=== PATIENT | male | born 1960 | race Caucasian/White ===

== ENCOUNTER → 2016-06-24 | Outpatient (CLI) | payer BC ==
[~2016-06-24] MED LIST: ASPI-435 PO; ASPI325T45 PO; CRS10 PO; DICL1GEL12 TOP; HYDR25TA5 PO; IBUP-1427 PO; LOSA100T65 PO; NAPR1TAB9 PO; TPRSR/50 PO
[2016-06-24 12:33] LABS: BLOOD UREA NITROGEN 13 mg/dl (7-18); BUN/CREATININE RATIO 12.1 (10-20); CALCIUM 9.4 mg/dl (8.5-10.1); CARBON DIOXIDE 25 mmol/L (21-32); CHLORIDE 100 mmol/L (98-107); GLUCOSE 73 mg/dl (70-99); POTASSIUM 4.3 mmol/L (3.5-5.1); SODIUM 135 mmol/L (136-145)
== END | disposition home or self-care (01) ==
LOC: C.LAB1850 11:18
PROVIDERS: ATTEND Family Medicine
DX: I10 Essential (primary) hypertension (principal); E78.00 Pure hypercholesterolemia, unspecified

== ENCOUNTER → 2017-01-11 | Outpatient (CLI) | payer BC ==
[~2017-01-11] MED LIST changes: -ASPI325T45 PO
[2017-01-11 13:41] LABS: ALB/GLOB RATIO 1.1 (0.9-2); ALKALINE PHOSPHATASE 67 U/L (45-117); ALT/SGPT 28 U/L (12-78); AST/SGOT 22 U/L (15-37); BLOOD UREA NITROGEN 17 mg/dl (7-18); CALCIUM 9.2 mg/dl (8.5-10.1); CARBON DIOXIDE 29 mmol/L (21-32); CHLORIDE 101 mmol/L (98-107); CHOLESTEROL 182 mg/dl (0-200); GLUCOSE 85 mg/dl (70-99); POTASSIUM 3.1 mmol/L (3.5-5.1); SODIUM 137 mmol/L (136-145)
[2017-01-11 13:44] LABS: CHOLESTEROL/HDL RATIO 3.5; HDL CHOLESTEROL 52 mg/dl; LDL CHOLESTEROL CALCULATED 104 mg/dl; TRIGLYCERIDES 130 mg/dl (0-150); VERY LOW DENSITY LIPOPROT CALC 26 mg/dl
== END | disposition home or self-care (01) ==
LOC: C.LAB1850 12:10
PROVIDERS: ATTEND Family Medicine
DX: I10 Essential (primary) hypertension (principal); E78.00 Pure hypercholesterolemia, unspecified; G47.33 Obstructive sleep apnea (adult) (pediatric)

== ENCOUNTER → 2017-02-04 | Outpatient (CLI) | payer BC ==
[2017-02-04 12:39] LABS: BLOOD UREA NITROGEN 22 mg/dl (7-18); BUN/CREATININE RATIO 18.4 (10-20); CALCIUM 9.6 mg/dl (8.5-10.1); CARBON DIOXIDE 27 mmol/L (21-32); CHLORIDE 104 mmol/L (98-107); GLUCOSE 93 mg/dl (70-99); POTASSIUM 3.5 mmol/L (3.5-5.1); SODIUM 138 mmol/L (136-145)
== END | disposition home or self-care (01) ==
LOC: C.LAB1850 10:15
PROVIDERS: ATTEND Family Medicine
DX: E87.6 Hypokalemia (principal)

== ENCOUNTER 2019-01-31 08:09 | Inpatient (IN) ==
--- NOTE | 2019-01-17 16:37 | PAT Medication Instructions ---
Medication Instructions Date of Service January 17, 2019 Home Medications Medication Instructions Recorded timolol 0.5 % eye drops 1 drops OP BID #15 ml 12/09/18 rosuvastatin 10 mg tablet 10 mg PO HS #90 tab 01/12/19 losartan 100 mg tablet 100 mg PO QAM metoprolol succinate ER 50 mg tablet,extended release 24 hr 50 mg PO QAM potassium chloride ER 20 mEq tablet,extended release 20 meq PO QAM valacyclovir 500 mg tablet 500 mg PO QAM diclofenac 1 % topical gel 1 % TOPICAL DAILY PRN timolol 0.5 % eye drops 1 drops OP BID aspirin [Aspirin Low Dose] 81 mg PO QAM brinzolamide-brimonidine [Simbrinza] 1 drops OP QPM hydrochlorothiazide 50 mg PO QAM loteprednol etabonate [Lotemax] 1 drp OPHTHALMIC (EYE) QDL rosuvastatin 10 mg tablet 10 mg PO HS ASK your surgeon for instructions diclofenac 1 % topical gel 1 % TOPICAL DAILY PRN DO NOT take the morning of surgery losartan 100 mg tablet 100 mg PO QAM potassium chloride ER 20 mEq tablet,extended release 20 meq PO QAM hydrochlorothiazide 50 mg PO QAM Take morning of surgery With a small sip of water, OTHERWISE NOTHING TO EAT OR DRINK AFTER MIDNIGHT: metoprolol succinate ER 50 mg tablet,extended release 24 hr 50 mg PO QAM valacyclovir 500 mg tablet 500 mg PO QAM timolol 0.5 % eye drops 1 drops OP BID aspirin [Aspirin Low Dose] 81 mg PO QAM loteprednol etabonate [Lotemax] 1 drp OPHTHALMIC (EYE) QDL Take evening before surgery timolol 0.5 % eye drops 1 drops OP BID brinzolamide-brimonidine [Simbrinza] 1 drops OP QPM rosuvastatin 10 mg tablet 10 mg PO HS BRING YOUR EYE DROPS WITH YOU TO THE HOSPITAL Other Notes If you have any questions please call us at [phone] or [phone] or [phone] or [phone]
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
--- NOTE | 2019-01-18 09:49 | XRay Report ---
XR chest Pre-admission PA/Lat CLINICAL HISTORY: pat preoperative evaluation COMPARISON STUDY: 02/20/2015 FINDINGS: Lungs are clear. Several old right-sided rib fractures. Mild fullness mid mediastinum consi dered chronic and unchanged from the prior study. IMPRESSION: No acute process. The above report was generated using voice recognition software. It may contain grammatical, syntax or spelling errors. Electronically signed by: Vazquez Celaya M.D. 01/18/2019 9:48 AM
[2019-01-18 10:04] LABS: Partial Thromboplastin Time 26.8 Seconds (21.0-31.0); Prothrombin Time 10.3 Seconds (9.0-12.0)
--- NOTE | 2019-01-28 09:21 | History and Physical Report ---
DATE OF ADMISSION: 01/31/2019 CHIEF COMPLAINT: Bilateral knee pain and discomfort, right side greater than left. 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 He has been followed by my partner, Dr. Lobo. He has had both of his knees scoped in the past, the right one done in 2010 and the left one in 2011. It did provide him with some relief temporarily. Over the past 5 years, he has developed increased pain and discomfort in both knees; he has been through extensive conservative treatment including anti-inflammatory medicines and injections, which have become less successful over time. The pain is global. He is having more and more difficulty performing his job, which requires activity. He would like to proceed with definitive treatment/knee replacement surgery. PAST MEDICAL HISTORY: Includes: 1. Hypertension. 2. Elevated cholesterol. 3. Low back pain/sciatica. PAST SURGICAL HISTORY: Includes bilateral knee arthroscopies, right one done in 2010 and the left one done in 2011. ALLERGIES: None. CURRENT MEDICINES: 1. Losartan. 2. Hydrochlorothiazide 50 mg a day. 3. Metoprolol 50 mg a day. 4. Potassium chloride 20 mEq a day. 5. Valacyclovir 500 mg. 6. Lotemax. 7. Retinal eye drops. 8. Simbrinza drops. 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 Fairly active. Does not smoke. He is . FAMILY HISTORY: Noncontributory. REVIEW OF HISTORY: Negative for diabetes, neurologic problem, vascular problem, bleeding disorders. No chest pain or shortness of breath. No history of DVT or PE. No known bleeding problems. PHYSICAL EXAMINATION: GENERAL: Reveals a healthy, pleasant, middle-aged male. Looks to be in good health. HEENT: Benign. NECK: Supple, no lymphadenopathy. LUNGS: Clear to auscultation. HEART: Regular rate and rhythm. ABDOMEN: Soft, nontender, nondistended. EXTREMITIES: Grossly neurovascularly intact except as follows: Examination of both knees reveals patient walks with slight varus alignment to both knees. Examination of the right knee reveals varus alignment. He has got well-healed portal sites. Small knee effusion. He is tender over the medial joint line. He has got some bony hypertrophy medially. Range of motion 5-125. No instability. No pain with hip motion. Examination of left knee reveals slight varus alignment. He is tender over the medial joint line. Range of motion is 5-125. No instability. No pain with hip motion. X-RAYS: X-rays of both knees reveal advanced bilateral knee medial compartment DJD. He has got complete loss of his medial joint space in both knees. He has got osteophytes off the medial femoral condyle and medial tibial plateau. He does have a little bit of patellofemoral maltracking on the right side with some degenerative changes in the patellofemoral joint. 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 He has failed conservative treatment. Right knee is worse than the left knee. He would like to proceed with right knee replacement. PLAN: We will take him to the operating room and do right total knee replacement. The risks and benefits of right total knee replacement were explained to the patient including but not limited to DVT, PE, , infection, neurological injury, vascular injury, bleeding problem, pain, limited range of motion, stiffness, failure to relieve symptoms, incomplete relief of symptoms, need for further surgery in future, fracture, leg length inequality, nerve palsy, etc. The patient understands and desires to proceed. Informed consent was obtained. As far as discharge plans, he is planning to be discharged to home using [facility] home health program. We did talk to him about taking his metoprolol on the morning of surgery.
[~2019-01-31 08:09] MED LIST changes: +ACETAMINOPHEN 500 MG TAB PO SCH; -ASPI-435 PO; +BUPIVACAINE 0.5 % 5 MG/1 ML PF 10ML VIAL ONE; +BUPIVACAINE LIPOSOME/PF 266 MG, BUPIVACAINE/EPINEPHRINE 50 ML, SODIUM CHLORIDE 0.9% 30 ... INFIL SCH; +CEFAZOLIN 2000MG 2,000 MG/15 ML SYR IV SCH; -CRS10 PO; -DICL1GEL12 TOP; +FAMOTIDINE 20 MG TAB PO SCH; +GABAPENTIN 600 MG DOSE PO SCH; -HYDR25TA5 PO; -IBUP-1427 PO; -LOSA100T65 PO; +LR 500ML BOLUS, THEN 15ML/HR IV SCH; +LR 60ML/HR IV SCH; +METOCLOPRAMIDE HCL 10 MG TABLET PO SCH; -NAPR1TAB9 PO; +ROPIVACAINE 0.5% 5 MG/ML 30 ML VIAL ONE; +SCOPOLAMINE 1.5 MG TDSY TD SCH; -TPRSR/50 PO; +TRANEXAMIC ACID 1,000 MG **IV Intra-op IV SCH
--- NOTE | 2019-01-31 09:01 | History & Physical Bridge Note ---
Date of Service January 31, 2019 History & Physical Bridge Note I have examined the patient, reviewed the History & Physical and in the interval since the performance of the History & Physical I have noted the following changes of clinical significance: no changes noted
[2019-01-31] MEDS ORDERED: ONDANSETRON INJ 2 MG/ML 2 ML VIAL IV PRN ×2 (09:50→15:30)
[2019-01-31] MEDS ORDERED: KETOROLAC 30 MG/ML VIAL IV PRN (09:50)
[2019-01-31] MEDS ORDERED: ePHEDrine sulfate 50 MG/ML AMP IV PRN (09:50)
[2019-01-31] MEDS ORDERED: HYDROmorphone INJ 1 MG/ML SYRINGE IV PRN (09:50)
[2019-01-31] MEDS ORDERED: ATROPINE SULFATE 0.1 MG/ML 10ML SYR IV PRN (09:50)
[2019-01-31] MEDS ORDERED: MIDAZOLAM HCL 1 MG/ML 2ML VIAL ONE (10:35)
[2019-01-31] MEDS ORDERED: SODIUM CHLORIDE 0.9% PF 50 ML VIAL ONE (11:38)
[2019-01-31] MEDS ORDERED: BUPIVACAINE LIPOSOME 1.3% 266 MG/20 ML VIAL ONE (11:39)
[2019-01-31] MEDS ORDERED: BACITRACIN INJ 50,000 UNIT VIAL ONE (11:39)
[2019-01-31] MEDS ORDERED: BUPIVACAINE 0.25% 30 ML VIAL ONE (11:46)
[2019-01-31] MEDS ORDERED: EPINEPHrine INJ 1 MG/ML AMP ONE (11:46)
[2019-01-31] MEDS ORDERED: PROPOFOL IV EMULSION 10 MG/ML 20 ML VIAL IV ONE (13:26)
[2019-01-31] MEDS ORDERED: ePHEDrine sulfate 50 MG/ML AMP ONE (13:26)
--- NOTE | 2019-01-31 13:49 | Post Operative Brief Note ---
PG Immediate Post Op with CF Date of Surgery January 31, 2019 Pre & Post Diagnosis Operation Date: 01/31/19 10:40 Pre-Op Diagnosis: Right Knee Degenerative Joint Disease w/Knee Pain Post-Op Diagnosis: Right Knee Degenerative Joint Disease w/Knee Pain Procedure Operation Date: 01/31/19 10:40 Actual Procedures p Right Total Knee Replacement(Right) - Connor Gomez MD Surgeon Connor Gomez MD Drill Foreman Velma, PAC Estimated Blood Loss 50 Findings Consistent with Post-Op Diagnosis Fluids 1100 cc Specimens Specimen Description: Permanent Specimens: A) Right Knee Bone and Tissue Drains Oseguera Catheter Anesthesia Type Spinal MAC Complications none Disposition Accompanied Patient To Recovery: No Disposition: Recovery Room
--- NOTE | 2019-01-31 14:14 | XRay Report ---
XR knee RT 2V routine CLINICAL HISTORY: Surgical Post Op COMPARISON: None. DISCUSSION: Anatomic alignment posttotal right knee arthroplasty. Could contact between prosthetic an d underlying bone. Expected postoperative soft tissue change IMPRESSION: Anatomic alignment posttotal right knee arthroplasty. The above report was generated using voice recognition software. It may contain grammatical, syntax or spelling errors. Electronically signed by: Vazquez Celaya M.D. 01/31/2019 2:13 PM
--- NOTE | 2019-01-31 14:31 | Anesthesiology Progress Note ---
Date of Service January 31, 2019 Anesthesia Post Procedure Vital Signs Vital Signs: Temp Pulse Pulse Resp BP BP Pulse Ox 01/31/19 14:25 36.5 C 66 16 122/76 97 01/31/19 14:15 69 16 103/66 95 01/31/19 14:05 71 17 111/76 98 01/31/19 13:58 36.1 C L 72 16 112/73 97 01/31/19 09:08 37.1 C 77 20 147/101 H 95 Transfer of Care Handoff Completed per policy Notes Mental Status: alert / awake / arousable Patient Amnestic to Procedure: Yes Nausea / Vomiting: adequately controlled Pain: adequately controlled Airway Patency, RR, SpO2: stable & adequate BP & HR: stable & adequate Hydration State: stable & adequate Anesthetic Complications: no major complications apparent
--- NOTE | 2019-01-31 14:48 | Operative Report ---
DATE OF OPERATION: 01/31/2019 SURGEON: Connor Gomez MD DRILL INSTRUCTOR: JANNY Wasserman PREOPERATIVE DIAGNOSIS: Right knee degenerative joint disease. POSTOPERATIVE DIAGNOSIS: Right knee degenerative joint disease. PROCEDURE PERFORMED: Right cemented posterior stabilized total knee arthroplasty. COMPLICATIONS: None. ESTIMATED BLOOD LOSS: 50 mL. FLUID REPLACEMENT: 1100 mL crystalloid fluid replacement. TOURNIQUET TIME: 59 minutes at 300 mmHg. ANESTHESIA: Spinal with adductor canal block. DRAINS: None. SPECIMENS: Right knee sent for pathology. 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 He has had both of his knees scoped in the past, which provided some temporary relief. He has been through extensive conservative treatment which became less successful over time. He elected to proceed with right total knee arthroplasty. OPERATIVE FINDINGS: Operative findings revealed advanced right knee DJD. He had grade 4 [id number] disease in the medial compartment and the patellofemoral compartment. His lateral compartment was pretty well preserved. He has varus deformity to his knee. Posterior femoral osteophytes. Moderate-sized knee joint effusion. OPERATIVE IMPLANTS: Operative implants consisted of: 1. Biomet Vanguard size 70 right posterior stabilized femoral component. 2. Biomet size 71 tibial tray. 3. A 10 mm posterior stabilized polyethylene insert. 4. A 34 x 8.5 all poly patella. OPERATIVE PROCEDURE: The patient was taken to the operating room, identified and placed on the operating table in supine position. All contact areas were appropriately padded. IV antibiotics provided by anesthesia team. A spinal anesthetic and adductor canal block had been provided in the holding area. Oseguera catheter was placed in sterile fashion. Right thigh tourniquet was then placed and the right lower extremity was then prepped and draped in usual sterile fashion. The right leg was elevated and exsanguinated with an Esmarch and tourniquet was placed at 300 mmHg. An anterior approach of the right knee was then performed through a longitudinal incision centered over the patella. Sharp dissection was carried through subcutaneous tissue down below the extensor mechanism. Medial parapatellar arthrotomy incision was made. Some subperiosteal dissection was carried out medially. The fat pad resected from beneath the patellar tendon. The lateral patellofemoral ligament was released. The patella was subluxated laterally and the knee was flexed. The osteophytes were taken off the distal femur. The ACL and PCL were then released from the distal femur and the tibia subluxated anteriorly. External tibial alignment jig was then placed in the anterior face of the tibia and adjusted 14 mm medially. Proximal tibial cut was made to remove about 2 mm of bone from the most deficient aspect of the medial tibial plateau. Some osteophytes were taken off medial and posteromedially. Tibia sized to a size 71. Attention was then drawn to the femur. The distal femur was entered with a sharp drill. Intramedullary canal was suctioned. A right 6 degree valgus cutting guide was placed. Distal femoral cutting block was pinned in place. Distal femoral cut was made to take an additional 3 mm of bone off the distal femur. The femur was then sized to a size 70. We did downsize this about half size. The AP cutting block was pinned parallel to the epicondylar axis, which was 4 degrees of external rotation. The anterior cut, anterior chamfer cut, posterior cut, posterior chamfer cuts were made. Box cutting guide was placed and adjusted slightly lateral and the box cut was made. The knee was flexed. The remnants of the medial and lateral menisci were excised. The osteophytes were taken off the posterior aspect of the femur. Trial femoral component was placed. Tibial tray was pinned in maximum external rotation and drill and stem punch were used to create defect in proximal tibia for the tibial tray. The knee was then trialed and the 10 mm insert fit most appropriately. Attention was then drawn to the patella. The patella was cleaned of all soft tissues. Patella thickness measured 23 mm in thickness, it was cut down to 14. It was sized to a size 34 patella. Lug holes were drilled for 34 patella. Lateral osteophyte was removed. Patella button was placed. Knee was taken through range of motion, patella tracked nicely with no thumbs test. Attention turned toward placement of permanent components. All trial components were removed. Bone plug was placed in the distal femur to limit blood loss. A double batch of Palacos G cement was mixed. Biomet WeWorkguard size 70 right posterior stabilized femoral component, size 71 tibial tray, 10 mm posterior stabilized polyethylene insert, and a 34 x 8.5 all poly patella then cemented in place. Knee was brought into full extension until cement hardened. A final cement check was then performed. Pericapsular tissues were injected with a total of 100 mL of a combination of 20 mL Exparel, 30 mL of normal saline, 50 mL of 0.25% Marcaine with epinephrine. The patient did receive 1 gram of tranexamic acid. The tourniquet was then let down for final tourniquet time of 59 minutes. Hemostasis was assured using electrocautery. The extensor mechanism was then closed with combination of #1 PDS suture and #1 Vicryl suture in a [id number] fashion. Extensor mechanism was checked and found to be intact. Subcutaneous tissues were then closed with #2 Dexon suture in a buried interrupted fashion. Skin was closed with skin oliver. Leg was then cleaned, dried and a sterile dressing of Xeroform, 4 x 4, sterile cast padding and Jose L bandage were applied. The patient then transferred to the recovery room in stable condition. The patient tolerated the procedure well with no complication. All needle and sponge counts were correct at the end of the operation. I attest to the content of the Intraoperative Record and any orders documented therein. Any exception s are noted below.
[2019-01-31] MEDS ORDERED: MAGNESIUM HYDROXIDE SUSP 30 ML UDC PO PRN (15:30)
[2019-01-31] MEDS ORDERED: DICLOFENAC SOD 1% GEL 100 GM TUBE EXT PRN (15:30)
[2019-01-31] MEDS ORDERED: HYDROmorphone INJ 0.5 MG/0.5 ML SYR IV PRN (15:30)
[2019-01-31] MEDS ORDERED: ALUMINUM/MAGNESIUM SUSP 30 ML UDC PO PRN (15:30)
[2019-01-31] MEDS ORDERED: TAMSULOSIN HCL 0.4 MG CAP PO PRN (15:30)
[2019-01-31] MEDS ORDERED: SODIUM CHLORIDE 0.9% 1000ML 1,000 ML IV SCH (15:30)
[2019-01-31] MEDS ORDERED: BISACODYL 10 MG SUPP PR PRN (15:30)
[2019-01-31] MEDS ORDERED: NALOXONE HCL 0.4 MG/1 ML VIAL/CARP IV PRN (15:30)
[2019-01-31] MEDS ORDERED: METOCLOPRAMIDE HCL INJ 5 MG/ML 2 ML VIAL IV PRN (15:30)
[2019-01-31] MEDS: SIMBRINZA ~ ORDER AWAITING ACTION SCH (16:14)
[2019-01-31] MEDS: ACETAMINOPHEN 500 MG TAB PO SCH ×2 (16:30→21:38)
[2019-01-31] MEDS: CHECK SCOPOLAMINE PATCH PLACEMENT SCH ×2 (16:30→23:29)
[2019-01-31] MEDS: KETOROLAC 30 MG/ML VIAL IV SCH ×2 (16:30→21:38)
[2019-01-31] MEDS: ASCORBIC ACID 500 MG TAB PO SCH (17:57)
[2019-01-31] MEDS: FERROUS GLUCONATE 324 MG TAB PO SCH (17:57)
[2019-01-31] MEDS ORDERED: TRANEXAMIC ACID 1,000 MG in 0.9 % SODIUM CHLORIDE 100 ML IV SCH (19:51)
[2019-01-31] MEDS: CEFAZOLIN 2000MG 2,000 MG/15 ML SYR IV SCH (20:30)
[2019-01-31] MEDS: DOCUSATE SODIUM 100 MG CAP PO SCH (20:31)
[2019-01-31] MEDS: ROSUVASTATIN CALCIUM 10 MG TAB PO SCH (20:31)
[2019-01-31] MEDS: SENNA 8.6 MG TAB PO SCH (20:31)
[2019-01-31] MEDS: ASPIRIN 81 MG ECTAB PO SCH (20:31)
[2019-01-31] MEDS: TAPENTADOL HCL ER 50 MG TABCR PO SCH (20:32)
[2019-02-01] MEDS: SIMBRINZA ~ ORDER AWAITING ACTION SCH ×4 (01:08→22:56)
[2019-02-01] MEDS: KETOROLAC 30 MG/ML VIAL IV SCH ×4 (03:29→21:19)
[2019-02-01] MEDS: CEFAZOLIN 2000MG 2,000 MG/15 ML SYR IV SCH (03:50)
[2019-02-01] MEDS: ACETAMINOPHEN 500 MG TAB PO SCH ×3 (05:54→21:18)
[2019-02-01 06:17] LABS: Hematocrit (blood only) 32.2 % (42-52); Hemoglobin 11.7 g/dL (14.0-18.0); Mean Corpuscular Hemoglobin 34.8 pg (25-34); Mean Corpuscular Hgb Conc 36.3 g/dL (32-36); Mean Corpuscular Volume 95.8 fL (80-100); Mean Platelet Volume 9.7 fL (7.4-10.4); Platelet Count 195 K/uL (130-400); RDW Coefficient of Variation 12.5 % (11.5-14.5); RDW Standard Deviation 43.7 fL (36.4-46.3); Red Blood Count 3.36 M/uL (4.7-6.1); White Blood Count 5.44 K/uL (4.8-10.8)
[2019-02-01 06:48] LABS: Potassium 3.3 mmol/L (3.5-5.1)
[2019-02-01 06:49] LABS: BUN Creatinine Ratio 13.5 (10-20); Calcium 7.9 mg/dl (8.5-10.1); Creatinine Clr Calc Pharmacy 69.9 ml/min; Est GFR (African American) 67.2
[2019-02-01] MEDS ORDERED: POTASSIUM CHLORIDE 20 MEQ TABCR PO ONE ×2 (08:15)
[2019-02-01] MEDS: hydroCHLOROthiazide 25 MG TAB PO SCH (08:32)
[2019-02-01] MEDS: METOPROLOL SUCC 50MG EXT REL TAB PO SCH (08:32)
[2019-02-01] MEDS: ASPIRIN 81 MG ECTAB PO SCH ×2 (08:32→19:57)
[2019-02-01] MEDS: DOCUSATE SODIUM 100 MG CAP PO SCH ×2 (08:33→19:58)
[2019-02-01] MEDS: MULTIVITAMIN TAB PO SCH (08:33)
[2019-02-01] MEDS: VALACYCLOVIR HCL 500 MG TABLET PO SCH (08:33)
[2019-02-01] MEDS: LOSARTAN POTASSIUM 50 MG TAB PO SCH (08:33)
[2019-02-01] MEDS: ASCORBIC ACID 500 MG TAB PO SCH ×2 (08:33→17:46)
[2019-02-01] MEDS: FERROUS GLUCONATE 324 MG TAB PO SCH ×2 (08:34→17:46)
[2019-02-01] MEDS: TAPENTADOL HCL ER 50 MG TABCR PO SCH ×2 (08:37→19:59)
[2019-02-01] MEDS: OXYCODONE HCL IR 5 MG TAB (IMMEDIATE RELEASE) PO PRN ×3 (10:07→23:31)
[2019-02-01] MEDS: POTASSIUM CHLORIDE 20 MEQ TABCR PO SCH (10:08)
[2019-02-01 15:50] VITALS: TEMP 98.1
[2019-02-01] MEDS: SENNA 8.6 MG TAB PO SCH (19:57)
[2019-02-01] MEDS: ROSUVASTATIN CALCIUM 10 MG TAB PO SCH (19:57)
--- NOTE | 2019-02-01 20:39 | Progress Note ---
DATE: 02/01/2019 SUBJECTIVE: A 59-year-old gentleman postop day 1 from right knee replacement. He is doing well. Pain is controlled. Therapy went well. No chest pain or shortness of breath. Not feeling dizzy or lightheaded. OBJECTIVE: VITAL SIGNS: Temperature 36.7. Vital signs stable. PHYSICAL EXAMINATION: GENERAL: Shows a healthy, pleasant middle-aged male. He is lying in bed and talking to his . He looks comfortable. LUNGS: Clear to auscultation. HEART: Regular rate and rhythm. ABDOMEN: Soft, nontender, nondistended. EXTREMITIES: Grossly neurovascularly intact except as follows: Examination of the right leg reveals the dressing to be clean, dry, and intact. He can dorsiflex and plantarflex his foot appropriately. He has brisk refill. Good distal pulse. LABORATORY DATA: Hemoglobin 11.7. Hematocrit 32.2. Electrolytes are stable. Potassium is a little bit low at 3.3 and we will supplement that. ASSESSMENT: 59-year-old gentleman postop day 1 from a right knee replacement, doing pretty well. Pain is controlled. He is neurologically intact. Potassium is a little low and we will supplement that. PLAN: 1. DVT prophylaxis including thigh-high TEDs, SCDs, and aspirin twice a day. 2. PT/OT. Weight bear as tolerated. Right total knee protocol. 3. Pain control, doing well with current pain regimen. 4. Hypokalemia. Will supplement his potassium and that has already been done today. 5. Disposition: Plan to discharge to home with some home health likely tomorrow after therapy if doing okay.
[2019-02-01 23:39] VITALS: O2SAT 97
[2019-02-02] MEDS: KETOROLAC 30 MG/ML VIAL IV SCH ×2 (03:27→08:13)
[2019-02-02] MEDS: ACETAMINOPHEN 500 MG TAB PO SCH (05:41)
[2019-02-02 06:07] LABS: BUN Creatinine Ratio 14.7 (10-20); Calcium 8.2 mg/dl (8.5-10.1); Creatinine Clr Calc Pharmacy 75.6 ml/min; Est GFR (African American) 73.8; Est GFR (Non-African American) 63.7; Potassium 3.4 mmol/L (3.5-5.1)
[2019-02-02] MEDS ORDERED: POTASSIUM CHLORIDE 20 MEQ TABCR PO ONE (08:00)
[2019-02-02] MEDS: TAPENTADOL HCL ER 50 MG TABCR PO SCH (08:04)
[2019-02-02] MEDS: OXYCODONE HCL IR 5 MG TAB (IMMEDIATE RELEASE) PO PRN (08:04)
[2019-02-02] MEDS: ASCORBIC ACID 500 MG TAB PO SCH (08:05)
[2019-02-02] MEDS: DOCUSATE SODIUM 100 MG CAP PO SCH (08:06)
[2019-02-02] MEDS: hydroCHLOROthiazide 25 MG TAB PO SCH (08:06)
[2019-02-02] MEDS: ASPIRIN 81 MG ECTAB PO SCH (08:06)
--- NOTE | 2019-02-02 08:06 | Progress Note ---
DATE: 02/02/2019 SUBJECTIVE: A 59-year-old gentleman postop day 2 from right knee replacement. He is doing okay. Some pain, but controlled. No chest pain or shortness of breath. Not feeling dizzy or lightheaded. OBJECTIVE: VITAL SIGNS: Temperature 36.7. Vital signs stable. GENERAL: Physical examination shows a pleasant 59-year-old male. He is sitting up in bed, he looks pretty comfortable. EXTREMITIES: Examination of the right leg reveals the dressing to be clean, dry and intact. No significant drainage. Some moderate swelling. He can dorsiflex and plantarflex his foot appropriately. NEUROLOGIC: He is neurologically intact. LABORATORY DATA: Potassium is still low at 3.4. Remainder of electrolytes are stable. ASSESSMENT: A 59-year-old gentleman postop day 2 from a right knee replacement, doing pretty well. His pain is controlled. He is a little hypokalemic and we will continue to supplement his potassium. PLAN: 1. DVT prophylaxis including thigh-high TEDs, SCDs, and aspirin twice a day. 2. PT/OT. Weight bear as tolerated. Right total knee protocol. 3. Pain control, doing pretty well with current pain regimen. 4. Disposition: Plan to discharge to home later today after therapy. 5. Hypokalemia, will continue potassium. MTDD
[2019-02-02] MEDS: FERROUS GLUCONATE 324 MG TAB PO SCH (08:07)
[2019-02-02] MEDS: LOSARTAN POTASSIUM 50 MG TAB PO SCH (08:07)
[2019-02-02] MEDS: METOPROLOL SUCC 50MG EXT REL TAB PO SCH (08:08)
[2019-02-02] MEDS: VALACYCLOVIR HCL 500 MG TABLET PO SCH (08:08)
[2019-02-02] MEDS: MULTIVITAMIN TAB PO SCH (08:08)
[2019-02-02] MEDS: POTASSIUM CHLORIDE 20 MEQ TABCR PO SCH (08:09)
[2019-02-02] MEDS: SIMBRINZA ~ ORDER AWAITING ACTION SCH (08:12)
[2019-02-02 10:12] VITALS: BP 95/61; PULSE 75
--- NOTE | 2019-02-08 08:57 | Discharge Summary ---
ADMITTING PHYSICIAN AND SURGEON: Dr. Gomez. ADMITTING DIAGNOSIS: Right total knee arthroplasty. SECONDARY DIAGNOSES: Hypertension, elevated cholesterol, low back pain, sciatica. CONSULTS: None obtained. HISTORY AND PHYSICAL EXAM: Well documented in the patient's chart. HOSPITAL COURSE: The patient was admitted on 01/31/2019, underwent total knee arthroplasty, tolerated the procedure well. There were no complications. He was transferred to the PACU postoperatively and later to the Orthopedic floor for further care. He was given Ancef for antibiotic prophylaxis, SUNITHA stockings, SCDs and aspirin for DVT prophylaxis. Hemoglobin, hematocrit and vital signs were monitored during his hospital stay and remained stable, did not require any blood transfusions. There were no complications. By postoperative day 2, he was tolerating a regular diet. Pain was controlled with oral pain medicine. He was participating in physical therapy. He did have some hypokalemia, was given a potassium supplement. On postop day 2, he was discharged home, set up with Home Health Services. He is given printed discharge instructions as well as new prescriptions for extra strength Tylenol, aspirin and oxycodone. Continue his home medicines with the exception of his home dose of aspirin, which was changed. Continue physical therapy, weightbearing as tolerated, SUNITHA stockings. Follow up approximately 2 weeks postop or sooner if there are any problems or concerns.
== END 2019-02-02 11:49 | disposition home health service (06) | DRG 470 ==
LOC: ASU 08:09 → 3E 13:54

== ENCOUNTER 2022-01-26 06:12 | Observation (INO) ==
--- NOTE | 2021-12-24 10:06 | PAT Medication Instructions ---
Medication Instructions Date of Service December 24, 2021 Home Medications Medication Instructions Recorded levothyroxine 50 mcg tablet 50 mcg PO QAM #90 tabs 08/06/21 losartan 100 mg tablet 100 mg PO QAM #90 tabs 08/06/21 metoprolol succinate 50 mg 50 mg PO HS #90 tabs 09/04/21 tablet,extended release 24 hr amlodipine 5 mg tablet 5 mg PO QAM #90 tabs 09/23/21 valacyclovir 500 mg tablet 500 mg PO QAM rosuvastatin 10 mg tablet 10 mg PO PM levothyroxine 50 mcg tablet 50 mcg PO QAM losartan 100 mg tablet 100 mg PO QAM metoprolol succinate 50 mg tablet,extended release 24 hr 50 mg PO HS amlodipine 5 mg tablet 5 mg PO QAM DO NOT take the morning of surgery losartan 100 mg tablet 100 mg PO QAM Take morning of surgery With a small sip of water, OTHERWISE NOTHING TO EAT OR DRINK AFTER MIDNIGHT: valacyclovir 500 mg tablet 500 mg PO QAM levothyroxine 50 mcg tablet 50 mcg PO QAM amlodipine 5 mg tablet 5 mg PO QAM Take evening before surgery rosuvastatin 10 mg tablet 10 mg PO PM metoprolol succinate 50 mg tablet,extended release 24 hr 50 mg PO HS Other Notes If you have any questions please call us at [phone] or [phone] or [phone] or [phone]
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
--- NOTE | 2022-01-24 11:16 | History and Physical Report ---
DATE OF DICTATION: 01/24/2022. CHIEF COMPLAINT: Left knee pain and discomfort. HISTORY OF PRESENT ILLNESS: The patient is a 62-year-old gentleman well known to me from a previous right knee replacement done a little over 3 years ago. He continues to be limited by left knee pain and discomfort. He describes global pain. He has been seeing Charly, my physician intellectual property legal assistant, and wright minerva multiple injections into the knee, which have become less successful over time. Pain has become mo re debilitating. It hurts him pretty much all the time. The more he is up and on it, the more it hu rts and the more he limps. He is happy with his right knee, would like to have his left knee replace d. PAST MEDICAL HISTORY: Significant for: 1. Hypertension. 2. Elevated cholesterol. 3. Sleep apnea. 4. Hypothyroidism. 5. Low back pain/sciatica. PAST SURGICAL HISTORY: Includes: 1. Rotator cuff repair. 2. Knee arthroscopy and meniscectomy. 3. Right total knee replacement done on 01/31/2019. ALLERGIES: None. CURRENT MEDICATIONS: Include: 1. Amlodipine. 2. Levothyroxine. 3. Losartan. 4. Metoprolol. 5. Rosuvastatin. 6. Valacyclovir. SOCIAL HISTORY: A 62-year-old male. He is . Does not smoke. FAMILY HISTORY: Noncontributory. REVIEW OF SYSTEMS: Negative for diabetes. No chest pain or shortness of breath. No history of DVT or PE. No known bleeding problems. PHYSICAL EXAMINATION: GENERAL: Shows a pleasant, healthy middle-aged male. Looks to be in pretty good health. HEENT: Benign. NECK: Supple. No lymphadenopathy. LUNGS: Clear to auscultation. HEART: Regular rate and rhythm. ABDOMEN: Soft, nontender, nondistended. EXTREMITIES: Grossly neurovascularly intact except as follows. Examination of both knees revealed patient walks independently. Clearly limps on the left side. Exa mination of the left knee reveals varus alignment to his knee, which is increased with weightbearing. He has got bony hypertrophy medially. Small knee effusion. Range of motion is couple degrees shor t of full extension to 120 degrees of flexion. No instability. No pain with hip motion. Examination of the right knee reveals well-healed incision. He has got anatomic alignment to his kne e. Range of motion is 0 to 120. X-RAYS: X-rays of the left knee from previously were reviewed. It shows advanced left knee degenera tive joint disease. He has got complete loss of medial joint space. He has got subchondral sclerosi s. He has got osteophytes primarily medially. The right knee replacement looks to be in good positi on without problems. ASSESSMENT: A 62-year-old male with several medical comorbidities including hypertension, elevated c holesterol, sleep apnea, hypothyroidism, and chronic back pain, now 3 years out from right knee repla cement with advanced left knee degenerative joint disease. He has failed conservative treatment and would like to have his left knee replaced. PLAN: We will take him to the operating room and do left total knee replacement. The risks and bene fits of this procedure were explained to the patient and include but not limited to DVT, PE, , i nfection, neurological injury, vascular injury, bleeding problem, pain, limited range of motion, stif fness, failure to relieve symptoms, incomplete relief of symptoms, need for further surgery in the fu ture, etc. The patient understands and desires to proceed. Informed consent was obtained. As far as discharge plans, he is planning to be discharged to home using [employer]. He will take his metoprolol the morning of surgery along with levothyroxine with a sip of water. Job ID: [id number]
[~2022-01-26 06:12] MED LIST changes: -BUPIVACAINE 0.5 % 5 MG/1 ML PF 10ML VIAL ONE; -CEFAZOLIN 2000MG 2,000 MG/15 ML SYR IV SCH; -METOCLOPRAMIDE HCL 10 MG TABLET PO SCH; -ROPIVACAINE 0.5% 5 MG/ML 30 ML VIAL ONE; -SCOPOLAMINE 1.5 MG TDSY TD SCH; +Scopolamine 1 MG TDSY TD SCH; +TRANEXAMIC ACID 1,000 MG **IV Pre-op IV SCH; +ceFAZolin 2000MG 2,000 MG/15 ML SYR IV SCH; +dexAMETHasone 4 MG TAB PO SCH
[2022-01-26] MEDS ORDERED: BUPIVACAINE 0.5 % 5 MG/1 ML PF 10ML VIAL ONE (06:21)
[2022-01-26] MEDS ORDERED: ROPIVACAINE 0.5% 5 MG/ML 30 ML VIAL ONE (06:22)
--- NOTE | 2022-01-26 06:55 | History & Physical Bridge Note ---
Date of Service January 26, 2022 History & Physical Bridge Note I have examined the patient, reviewed the History & Physical and in the interval since the performance of the History & Physical I have noted the following changes of clinical significance: no changes noted
[2022-01-26] MEDS ORDERED: PROPOFOL IV EMULSION 10 MG/ML 20 ML VIAL IV ONE ×3 (07:23→10:21)
[2022-01-26] MEDS ORDERED: fentaNYL citrate 100 MCG/2 ML VIAL ONE (07:23)
[2022-01-26] MEDS ORDERED: MIDAZOLAM HCL 1 MG/ML 2ML VIAL ONE ×2 (07:23→09:15)
[2022-01-26] MEDS ORDERED: Nursing to Pharmacy Communication SCH (07:45)
[2022-01-26] MEDS ORDERED: ONDANSETRON INJ 2 MG/ML 2 ML VIAL IV PRN ×2 (08:25→12:51)
[2022-01-26] MEDS ORDERED: ePHEDrine sulfate 50 MG/ML AMP IV PRN (08:25)
[2022-01-26] MEDS ORDERED: ATROPINE SULFATE 0.1 MG/ML 10ML SYR IV PRN (08:25)
[2022-01-26] MEDS ORDERED: PROMETHAZINE HCL 6.25 MG in SODIUM CHLORIDE 0.9% 50 ML IV PRN (08:25)
[2022-01-26] MEDS ORDERED: fentaNYL citrate 100 MCG/2 ML VIAL IV PRN (08:25)
[2022-01-26] MEDS ORDERED: BUPIVACAINE LIPOSOME 1.3% 266 MG/20 ML VIAL ONE (08:48)
[2022-01-26] MEDS ORDERED: BUPIVACAINE/EPINEPHRINE 0.25% 1:200,000 30 ML VIAL ONE (08:48)
[2022-01-26] MEDS ORDERED: SODIUM CHLORIDE 0.9% PF 50 ML VIAL ONE (08:48)
[2022-01-26] MEDS ORDERED: DEXAMETHASONE SOD INJ 4 MG/ML VIAL ONE (09:25)
[2022-01-26] MEDS ORDERED: ONDANSETRON INJ 2 MG/ML 2 ML VIAL ONE (09:25)
[2022-01-26] MEDS ORDERED: ePHEDrine sulfate 50 MG/ML AMP ONE (09:36)
--- NOTE | 2022-01-26 11:24 | Operative Report ---
PG Post Operative Report Pre & Post Diagnosis Operation Date: 01/26/22 08:50 Pre-Op Diagnosis: Left Knee DJD Post-Op Diagnosis: Left Knee DJD I identified the patient and participated in the time-out.: Yes Procedure Operation Date: 01/26/22 08:50 Actual Procedures p Left Total Knee Arthroplasty(Left) - Connor Gomez MD Surgeon Connor Gomez MD Hammer Repairer Taras Carreon PA-C Estimated Blood Loss 50 Findings Consistent with Post-Op Diagnosis Operative findings were advanced left knee DJD. Extensive grade 4 [id number] disease and eburnation medial compartment. Some spotty grade 4 changes elsewhe re. He had a varus deformity to his knee with a moderate sized knee effusion. Specimens Left knee sent for pathology Anesthesia Type Spinal MAC Complications none Disposition Accompanied Patient To Recovery: No Indications Patient is a 62-year-old very active gentleman is had a long history of bilateral knee pain discomfort. He has been through extensive conservative conservative treatment over the years. He has right knee replaced about 3 years ago and done well from this. He continued to be limited by left knee pain. He had failed all conservative measures. He elected proceed with total knee arthroplasty. Description of Procedure Operative implants consist of: 1 Biomet Vanguard size 72.5 left posterior stabilized femoral component. 2. Biomet size 75 tibial tray. 3. 10 mm posterior stabilized polyethylene insert. 4. 31 x 8 all Paller patella. The patient was taken to the operating room, identified, placed on the operating table supine position protectors were properly padded. IV antibiotics tried by anesthesia team. Spinal anesthetic and abductor canal block had provided holding area. Oseguera catheter was placed in sterile fashion. A left thigh turn was then placed in left lower extremities then prepped and draped in usual sterile fashion. The left leg was elevated exsanguinated with use of an Esmarch in terms playset 3 mmHg. An anterior posterior left knee was then performed to longitudinal incision centered over the patella. Sharp dissection Through subcutaneous is down to the extensor mechanism. A medial parapatellar arthrotomy incision was made. Some subperiosteal dissection was carried out medially. The fat pad was resected from Neath patella tendon. The lateral patellofemoral ligament was released. Patella subluxated laterally and the knee was flexed. The osteophyte taken off distal femur. The ACL and PCL were then released from distal femur the tibia subluxated anteriorly. The external tibial alignment jig was then placed in the interface the tibia and adjusted 14 mm medially. Proximal tibial cut was made to essentially flush with the most deficient aspect the medial tibial plateau. Some osteophytes taken off medial and posterior medially. Tibia sized to a size 75. Attention drawn the femur. The distal femur was entered with a sharp drop with intramedullary canal was suction. A left 6 degree valgus cutting guide was placed. Distal femoral cutting block was pinned in place. Distal femoral cut was made to take an additional 3 mm bone off distal femur. The femur was then sized to a size 72.5. We downsized these just slightly. I considered trying to downsize this further but I would stick conservative might have some laxity in flexion. The AP cutting block was pinned parallel to the collar axis which was 5 degrees of external rotation. The anterior cut, anterior chamfer, posterior cut, posterior chamfer cuts were made. The box cutting guide was placed in just slight lateral and the box cut was made. The knee was flexed. The remnants of the medial lateral menisci were excised. The osteophytes were taken off the posterior aspect of the femur. Trial femoral component was placed. The tibial tray was pinned in maximum external rotation and the drill and stem punch were used to create defect in proximal tibia for the tibial tray. Knee was then trialed and 10 mm insert fit most appropriately. Attention drawn the patella. The patella was cleaned of all soft tissue. Patella thickness measured 24 mm in thickness was cut down to 14. Was sized to a size 31 patella. The lug holes were for the 31 patella. Were then drilled. Lateral osteophyte was removed. Patella button was placed. Knee was taken through range of motion patella tracked nicely with no thumbs test. Attention drawn to place the permanent components. Nupathe all trial components were removed. Bone plug was placed in the distal femur limit blood loss. Double batch Palacos G cement was mixed. Biomet Vanguard size 72.5 left posterior stabilized femoral component, size 75 tibial tray, 10 mm posterior stabilized polyethylene insert, and a 31 x 8 all Paller patella then cemented in place. Knee was brought out in full extension total cement hardened. Final cement check was then performed. Pericapsular tissues were then injected with a total of 100 cc of combination of 20 cc of Exparel, 30 cc normal saline, 50 cc of quarter percent Marcaine with epinephrine. Patient did receive 1 g tranexamic acid per the tourniquet was let down for final turn time 58 minutes. Hemostasis assured use electrocautery. Wounds once again irrigated. Extensor mechanism closed with combination 1 PDS suture #1 Vicryl suture in [id number] fashion. Extensor mechanism checked found to be intact and subcutaneous tissue then closed with 2 Dexon suture in a buried erupted fashion skin was closed skin oliver. Leg was then cleaned and dried a sterile dressing was Xeroform, 4 x 4's, sterile cast padding, Jose L bandage were applied. Patient then transferred to the recovery room in stable condition. Patient tolerated procedure well and there were no complications. Taras Carreon, my physician bilingual medical assistant, was present for the entire procedure. His assistance was essential and required for appropriate patient positioning, prepping and draping, surgical exposure, performing the technical details of the operation, placement the implants, closure of the wound, and placement of the sterile bandage. I attest to the content of the Intraoperative Record and any orders documented therein. Any exceptions are noted below.
--- NOTE | 2022-01-26 12:04 | XRay Report ---
LEFT KNEE 2 VIEWS History: Left total knee arthroplasty. Degenerative arthritis. Postop. FINDINGS: The patient is status post a left total knee arthroplasty. The hardware is intact. No fract ure or dislocation. Skin oliver are in place. IMPRESSION: Left total knee arthroplasty. No evidence for hardware complication. ACT 112: Negative or not required by law. Electronically signed by: Sunil Stanley M.D. 01/26/2022 12:02 PM
[2022-01-26] MEDS ORDERED: bisacodyL 10 MG SUPP PR PRN (12:51)
[2022-01-26] MEDS ORDERED: diphenhydrAMINE Capsule 25 MG CAP PO PRN (12:51)
[2022-01-26] MEDS ORDERED: METOCLOPRAMIDE HCL INJ 5 MG/ML 2 ML VIAL IV PRN (12:51)
[2022-01-26] MEDS ORDERED: NALOXONE HCL 0.4 MG/1 ML VIAL/CARP IV PRN (12:51)
[2022-01-26] MEDS ORDERED: HYDROmorphone INJ 0.5 MG/0.5 ML SYR IV PRN (12:51)
[2022-01-26] MEDS ORDERED: ALUMINUM/MAGNESIUM SUSP 30 ML UDC PO PRN (12:51)
[2022-01-26] MEDS ORDERED: oxyCODONE HCL IR 5 MG TAB (IMMEDIATE RELEASE) PO PRN (12:51)
[2022-01-26] MEDS ORDERED: MAGNESIUM HYDROXIDE SUSP 30 ML UDC PO PRN (12:51)
[2022-01-26] MEDS: SODIUM CHLORIDE 0.9% 1000ML 1,000 ML IV SCH (14:11)
[2022-01-26] MEDS: KETOROLAC 30 MG/ML VIAL IV SCH ×2 (14:11→19:54)
--- NOTE | 2022-01-26 14:13 | Anesthesiology Progress Note ---
Date of Service January 26, 2022 Anesthesia Post Procedure Vital Signs Vital Signs: Temp Pulse Pulse Resp BP Pulse Ox O2 Del Method 01/26/22 13:30 97.7 F 65 16 124/78 95 Room Air 01/26/22 13:07 97.5 F L 66 18 122/77 92 Room Air 01/26/22 12:32 97.5 F L 75 125/75 97 Room Air 01/26/22 12:10 78 24 118/85 92 Room Air 01/26/22 11:55 69 18 113/70 93 Room Air 01/26/22 11:40 61 20 105/71 92 Room Air 01/26/22 11:05 77 20 111/62 98 Oxymask 01/26/22 11:25 97.3 F L 74 16 118/68 93 Room Air 01/26/22 11:15 68 15 108/60 95 Room Air 01/26/22 10:56 97.7 F 83 22 109/67 98 Oxymask 01/26/22 06:32 97.7 F 66 18 144/94 H 96 Room Air O2 Flow Rate 01/26/22 13:30 01/26/22 13:07 01/26/22 12:32 01/26/22 12:10 01/26/22 11:55 01/26/22 11:40 01/26/22 11:05 6 01/26/22 11:25 01/26/22 11:15 01/26/22 10:56 6 01/26/22 06:32 Transfer of Care Handoff Completed per policy Notes Mental Status: alert / awake / arousable and participated in evaluation Patient Amnestic to Procedure: Yes Nausea / Vomiting: adequately controlled Pain: adequately controlled Airway Patency, RR, SpO2: stable & adequate BP & HR: stable & adequate Hydration State: stable & adequate Neuraxial Anesthesia: was administered and sensory block is resolving Anesthetic Complications: no major complications apparent and Pt Satisfied with anesthetic care
[2022-01-26] MEDS: ACETAMINOPHEN 500 MG TAB PO SCH ×2 (14:37→21:11)
[2022-01-26] MEDS ORDERED: COUGH DROP (SUGAR FREE) LOZ 24 LOZ/1 BOX BUCCAL PRN (14:42)
[2022-01-26] MEDS: Scopolamine CHECK PATCH PLACEMENT SCH (15:31)
[2022-01-26] MEDS ORDERED: TRANEXAMIC ACID / 0.7% NACL 1,000 MG/100 ML BAG IV SCH (17:15)
[2022-01-26] MEDS: ASCORBIC ACID 500 MG TAB PO SCH (17:56)
[2022-01-26] MEDS: ceFAZolin 2000MG 2,000 MG/15 ML SYR IV SCH (18:02)
[2022-01-26] MEDS ORDERED: SENNA 8.6 MG TAB PO SCH (21:00)
[2022-01-26] MEDS ORDERED: ROSUVASTATIN CALCIUM 10 MG TAB PO SCH (21:00)
[2022-01-26] MEDS ORDERED: DOCUSATE SODIUM/SENNA 50/8.6MG TAB PO SCH (21:00)
[2022-01-26] MEDS ORDERED: METOPROLOL SUCC 50MG EXT REL TAB PO SCH (21:00)
[2022-01-26] MEDS: TAPENTADOL HCL ER 50 MG TABCR PO SCH (21:10)
[2022-01-26] MEDS: DOCUSATE SODIUM 100 MG CAP PO SCH (21:11)
[2022-01-26] MEDS: ASPIRIN 81 MG ECTAB PO SCH (21:11)
[2022-01-27] MEDS: SODIUM CHLORIDE 0.9% 1000ML 1,000 ML IV SCH (00:26)
[2022-01-27] MEDS: ceFAZolin 2000MG 2,000 MG/15 ML SYR IV SCH (00:27)
[2022-01-27] MEDS: Scopolamine CHECK PATCH PLACEMENT SCH ×2 (00:27→08:37)
[2022-01-27] MEDS: KETOROLAC 30 MG/ML VIAL IV SCH ×2 (00:31→08:31)
[2022-01-27 03:40] VITALS: TEMP 97.9
[2022-01-27] MEDS: ACETAMINOPHEN 500 MG TAB PO SCH (06:10)
[2022-01-27] MEDS ORDERED: LEVOTHYROXINE SODIUM 50 MCG TABLET PO SCH (06:30)
[2022-01-27 07:15] VITALS: BP 115/72; PULSE 46; O2SAT 95
[2022-01-27] MEDS ORDERED: dexAMETHasone 10 MG in SYRINGE 0 ML IV SCH (08:00)
[2022-01-27 08:29] LABS: Hematocrit (blood only) 34.7 % (40.1-51.0); Hemoglobin 12.1 g/dl (14.0-18.0); Mean Corpuscular Hemoglobin 34.9 pg (25.0-34.0); Mean Corpuscular Hgb Conc 34.9 g/dL (32.0-36.0); Mean Platelet Volume 10.3 fL (9.4-12.4); Platelet Count 282 K/uL (130-400); RDW Coefficient of Variation 12.2 % (11.5-14.5); RDW Standard Deviation 45.1 fL (36.4-46.3); Red Blood Count 3.47 M/uL (4.63-6.08); White Blood Count 14.33 K/ul (4.8-10.8)
[2022-01-27] MEDS: DOCUSATE SODIUM 100 MG CAP PO SCH (08:35)
[2022-01-27] MEDS: ASCORBIC ACID 500 MG TAB PO SCH (08:36)
[2022-01-27] MEDS: ASPIRIN 81 MG ECTAB PO SCH (08:36)
[2022-01-27] MEDS: TAPENTADOL HCL ER 50 MG TABCR PO SCH (08:38)
[2022-01-27 08:52] LABS: BUN Creatinine Ratio 14.6 (10-20); Calcium 8.8 mg/dl (8.5-10.1); Creatinine Clr Calc Pharmacy 69.9 ml/min; Est GFR (African American) 68.3 ml/min; Est GFR (Non-African American) 58.9 ml/min; Potassium 3.8 mmol/L (3.5-5.1)
[2022-01-27] MEDS ORDERED: TAMSULOSIN HCL 0.4 MG CAP PO SCH (09:00)
[2022-01-27] MEDS ORDERED: MULTIVITAMIN TAB PO SCH (09:00)
[2022-01-27] MEDS ORDERED: amLODIPine BESYLATE 5 MG TAB PO SCH (09:00)
[2022-01-27] MEDS ORDERED: LOSARTAN POTASSIUM 50 MG TAB PO SCH (09:00)
--- NOTE | 2022-01-27 09:45 | Orthopedic Progress Note ---
Date of Service January 27, 2022 Assessment & Plan (1) Status post total left knee replacement: He was seen and examined by Dr. Gomez today. Dressing was changed today. Incision intact. Plan for d/c home with home health today. dvt prophylaxis: teds, scd's and aspirin. Subjective .62 year old patient POD #1 from left tka. Doing well. Pain controlled. No chest pain or shortness of breath. Review of Systems All systems reviewed & are unremarkable except as noted in HPI & below. Physical Exam . alert and oriented. NAD. VSS Left leg: dressing intact, some bloody drainage on dressing. Able to do straight leg raise. Motion about 0-90. NVI Results & Data Results & Data Laboratory Results . Diagnostic Findings . PG Care Time/CCT Total # of Minutes Spent Total Time Spent with Patient: Total time spent is greater than 50% in coordination of care (as documented) at patient's floor/unit and/or counseling patient: Coding Level of Care Code 18880 Post Operative Follow-Up Diagnoses Status post total left knee replacement Z96.652
--- NOTE | 2022-02-02 09:57 | Discharge Summary ---
Date of Service February 02, 2022 Discharge Data Procedures Performed Operation Date: 01/26/22 08:50 Actual Procedures p Left Total Knee Arthroplasty(Left) - Connor Gomez MD Hospital Course (1) Status post total left knee replacement: This is a 62 year old patient admitted on 01/26/22 and underwent total knee arthroplasty. He tolerated the procedure well and there were no complications. Transferred to the PACU post op and later to the orthopedic floor for further care. He was given ancef for antibiotic prophylaxis. He was also given SUNITHA stockings, SCDs, and aspirin for DVT prophylaxis. Hemoglobin, hematocrit, and vital signs were monitored during his hospital stay and remained stable. Did not require any blood transfusions. There were no complications during his hospital stay. By post op day #1 the patient was tolerating a regular diet, pain was reasonably controlled with oral pain medicine, and he was participating in physical therapy. On post op day #1 the patient was discharged home and set up with home health care. He was given printed discharge instructions including prescriptions for extra strength tylenol, aspirin, toradol, zofran, sennokot, flomax, and oxycodone. Continue physical therapy, weight bearing as tolerated. Continue SUNITHA stockings. Follow up approximately 2 weeks post op or sooner if there are problems or concerns. Coding Level of Care Code None Diagnoses Status post total left knee replacement Z96.652
== END 2022-01-27 11:43 | disposition home health service (06) ==
LOC: ASU 06:12 → 3E 06:12
DX: I10 Essential (primary) hypertension; G89.29 Other chronic pain; M17.12 Unilateral primary osteoarthritis, left knee; Z79.899 Other long term (current) drug therapy; Z79.890 Hormone replacement therapy; E03.9 Hypothyroidism, unspecified; G47.30 Sleep apnea, unspecified; E78.00 Pure hypercholesterolemia, unspecified; Z96.651 Presence of right artificial knee joint